=== PATIENT | male | born 1995 | race Caucasian/White ===

== ENCOUNTER 2018-07-20 19:53 | Emergency (ER) | payer BC ==
[~2018-07-20] VITALS: Ht 190.5 cm; Wt 95.3 kg
[2018-07-20 20:14] VITALS: Ht 190.5 cm; Wt 95.3 kg
[2018-07-20 21:41] VITALS: BP 156/92
== END 2018-07-20 21:41 | disposition home or self-care (01) ==
LOC: ED 19:53
DX: Z11.3 Encounter for screening for infections with a predominantly sexual mode of transmission (principal)
CPT/HCPCS: J0696